=== PATIENT | female | born 1965 | race Caucasian/White ===

== ENCOUNTER → 2016-04-29 | Outpatient (CLI) | payer BC ==
[2016-04-29 11:34] LABS: ALT 52 U/L (9-52); AST 30 U/L (14-36); Alkaline Phosphatase 68 U/L (38-126); Anion Gap 13 mmol/L; Blood Urea Nitrogen 15 mg/dL (7-17); Carbon Dioxide 26 mmol/L (22-30); Chloride 106 mmol/L (98-107); Glucose 100 mg/dL (74-99); Non-African American GFR(MDRD) >60 (>60 ml/min/1.73 sqM); Potassium 4.4 mmol/L (3.5-5.1); Sodium 145 mmol/L (137-145); Total Bilirubin 0.6 mg/dL (0.2-1.3)
[2016-04-29 12:21] LABS: Vitamin B12 390 pg/mL (239-931)
== END | disposition home or self-care (01) ==
LOC: LABWHC1 10:35
PROVIDERS: ATTEND Internal Medicine Endocrinology, Diabetes & Metabolism
DX: E03.8 Other specified hypothyroidism (principal); E11.65 Type 2 diabetes mellitus with hyperglycemia; E55.9 Vitamin D deficiency, unspecified
CPT/HCPCS: 36415; 80053; 82043; 82306; 82607; 83036; 84439; 84443; 86376; 86800

== ENCOUNTER → 2016-09-16 | Outpatient (CLI) | payer BC ==
--- NOTE | 2016-09-16 13:23 | US ---
EXAMINATION TYPE: US abdomen complete DATE OF EXAM: 09/16/2016 7:26 AM COMPARISON: NONE CLINICAL HISTORY: R10.11 RUQ Abdominal Pain. 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 Upper IVC: Only partially visualized Abd Aorta: Only partially visualized Liver echotexture is coarse. Cortical medullary differentiation is maintained within the kidneys. The re is no ascites. IMPRESSION: Correlate for fatty infiltration of the liver versus hepatocellular disease. 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 Limited exam.
== END | disposition home or self-care (01) ==
LOC: RADUSWWP 07:03
PROVIDERS: ATTEND Family Medicine
DX: R10.11 Right upper quadrant pain (principal)
CPT/HCPCS: 76700

== ENCOUNTER → 2016-10-21 | Outpatient (CLI) | payer BC ==
--- NOTE | 2016-10-21 09:31 | NM ---
EXAMINATION TYPE: NM hepatobiliary w EF DATE OF EXAM: 10/21/2016 COMPARISON: NONE HISTORY: Right upper quadrant pain TECHNIQUE: After the intravenous administration of 5.28 mCi Tc 99m Mebrofenin hepatobiliary scintigra phy is performed. Immediate images post injection. FINDINGS: There is satisfactory initial accumulation of tracer by the liver. The gallbladder is visualized wit hin 10 minutes. The small bowel activity is noted within 34 minutes. At one hour 8 ounces of oral e nsure plus is given to mimic CCK and gallbladder ejection fraction is calculated at 90 %, above joan l. Therefore there is no scintigraphic evidence of cystic or common bile duct obstruction to suggest acute cholecystitis or gallbladder dyskinesia. IMPRESSION: HYPERCONTRACTILITY OF THE GALLBLADDER.
== END | disposition home or self-care (01) ==
LOC: RADNMMAIN 07:00
PROVIDERS: ATTEND Surgery
DX: K82.8 Other specified diseases of gallbladder (principal); R10.11 Right upper quadrant pain
CPT/HCPCS: 78226; A9537

== ENCOUNTER → 2017-02-06 | Outpatient (CLI) | payer MEDICARE ==
--- NOTE | 2017-02-09 10:41 | MM ---
Reason for exam: screening (asymptomatic). Last mammogram was performed 1 year and 8 months ago. History: Patient is postmenopausal. Physical Findings: A clinical breast exam by your physician is recommended on an annual basis and results should be correlated with mammographic findings. MG 3D Screening Mammo W/Cad Bilateral CC and MLO view(s) were taken. Prior study comparison: June 14, 2015, bilateral MG 3d screening mammo w/cad. February 17, 2012, mammogram. March 03, 2006, bilateral screening mammogram w/CAD. There are scattered fibroglandular densities. There is a 5mm mass in the central lower left breast 5cm from nipple. ASSESSMENT: Incomplete: need additional imaging evaluation, BI-RAD 0 RECOMMENDATION: Special view mammogram of the left breast. If lesion persists on supplemental views, image directed ultrasound is recommended. [facility] will attempt to contact patient to return for supplemental views and ultrasound if indicated.
== END | disposition home or self-care (01) ==
LOC: RADMAMWWP 07:41
PROVIDERS: ATTEND Surgery
DX: Z12.31 Encounter for screening mammogram for malignant neoplasm of breast (principal)
CPT/HCPCS: 77063; G0202

== ENCOUNTER → 2017-02-10 | Outpatient (CLI) | payer MEDICARE ==
--- NOTE | 2017-02-10 08:30 | MM ---
Reason for exam: additional evaluation requested from abnormal screening. Last mammogram was performed less than 1 month ago. History: Patient is postmenopausal. Took estrogen for 10 years beginning at age 30. Took progesterone for 10 years beginning at age 30. Physical Findings: Nurse did not find any significant physical abnormalities on exam. MG 3D Work Up W/Cad LT Spot compression CC, spot compression MLO, and LM view(s) were taken of the left breast. Prior study comparison: February 06, 2017, bilateral MG 3d screening mammo w/cad. June 14, 2015, bilateral MG 3d screening mammo w/cad. There are scattered fibroglandular densities. There is a 3-4mm mass that persists on addiitonal views. These results were verbally communicated with the patient and result sheet given to the patient on 02/10/17. ASSESSMENT: Incomplete: need additional imaging evaluation, BI-RAD 0 RECOMMENDATION: Ultrasound of the left breast. (lower inner quadrant, 3-4mm mass 4cm from the nipple)
--- NOTE | 2017-02-10 08:32 | USB ---
Reason for exam: additional evaluation requested from abnormal screening. History: Patient is postmenopausal. Took estrogen for 10 years beginning at age 30. Took progesterone for 10 years beginning at age 30. US Breast Workup Limited LT Technologist: Janel Gotti Left breast ultrasound demonstrates a 0.4 x 0.2 x 0.4cm oval lesion too small to characterize at 6 o'clock, probable cyst with subtle increased through transmission. Correlates with mammographic finding possibly subtly present on exam from 2011. These results were verbally communicated with the patient and result sheet given to the patient on 02/10/17. ASSESSMENT: Probably benign, BI-RAD 3 RECOMMENDATION: Ultrasound of the left breast in 6 months.
== END ==
LOC: RADMAMWWP 06:58
PROVIDERS: ATTEND Surgery
DX: R92.8 Other abnormal and inconclusive findings on diagnostic imaging of breast (principal)
CPT/HCPCS: 76642; G0206; G0279

== ENCOUNTER → 2017-09-03 | Outpatient (CLI) | payer MEDICARE ==
--- NOTE | 2017-09-03 11:02 | USB ---
Reason for exam: follow-up at short interval from prior study. History: Patient is postmenopausal. Took estrogen for 10 years beginning at age 30. Took progesterone for 10 years beginning at age 30. Physical Findings: Nurse Summary: all soft, nodular, movable, bilateral tenderness (nurse ts). US Breast LT Left complete breast ultrasound includes all four quadrants, the retroareolar region and axilla. Finding demonstrates a 0.3 x 0.2 x 0.3cm lesion too small to characterize at 6 o'clock, stable. These results were verbally communicated with the patient and result sheet given to the patient on 09/03/17. ASSESSMENT: Benign, BI-RAD 2 RECOMMENDATION: Return to routine screening mammogram schedule for both breasts. Back on schedule.
== END | disposition home or self-care (01) ==
LOC: RADUSWWP 08:46
PROVIDERS: ATTEND Family Medicine
DX: N63.20 Unspecified lump in the left breast, unspecified quadrant (principal)

== ENCOUNTER → 2017-11-19 | Outpatient (CLI) | payer MEDICARE ==
--- NOTE | 2017-11-19 12:40 | XR ---
EXAMINATION TYPE: XR knee complete bilateral DATE OF EXAM: 11/19/2017 CLINICAL HISTORY: Bilateral knee pain for one week. TECHNIQUE: Three views of the bilateral knees were obtained. COMPARISON: None. FINDINGS: There is no acute fracture/dislocation evident in either knee. There are small marginal os teophytes of the tricompartmental spaces bilaterally. On the right there is mild medial compartment j oint space narrowing. Bilaterally there is mild tibial plateau sclerosis of both the medial and later al compartments. Very small fabellae are incidentally noted bilaterally. No suprapatellar joint effus ion of either knee. No suspicious osseous lesion is seen. IMPRESSION: There is no acute fracture or dislocation in either knee. Moderate tricompartmental arth ropathy bilaterally, right slightly greater than left.
== END | disposition home or self-care (01) ==
LOC: RADXRMAIN 11:49
PROVIDERS: ATTEND Family Medicine
DX: M17.0 Bilateral primary osteoarthritis of knee (principal)

== ENCOUNTER → 2018-11-09 | Outpatient (CLI) | payer MEDICARE ==
--- NOTE | 2018-11-09 13:23 | MM ---
Reason for exam: additional evaluation requested from prior study. Last mammogram was performed 1 year and 9 months ago. History: Patient is postmenopausal. Took estrogen for 10 years beginning at age 30. Took progesterone for 10 years beginning at age 30. Physical Findings: Nurse did not find any significant physical abnormalities on exam. MG 3D Diag Mammo W/Cad [facility] Bilateral CC and MLO view(s) were taken. Prior study comparison: February 10, 2017, left breast MG 3d work up w/cad LT. February 06, 2017, bilateral MG 3d screening mammo w/cad. The breast tissue is almost entirely fat. No significant new findings when compared with previous films. These results were verbally communicated with the patient and result sheet given to the patient on 11/09/18. ASSESSMENT: Benign, BI-RAD 2 RECOMMENDATION: Routine screening mammogram of both breasts in 1 year.
== END | disposition home or self-care (01) ==
LOC: RADMAMWWP 12:41
PROVIDERS: ATTEND Family Medicine
DX: R92.8 Other abnormal and inconclusive findings on diagnostic imaging of breast (principal)
CPT/HCPCS: 77066; G0279; 77062

== ENCOUNTER → 2019-07-11 | Outpatient (CLI) | payer MEDICARE | END | disposition home or self-care (01) | DX: R07.89 Other chest pain (principal) | CPT/HCPCS: 71046 ==

== ENCOUNTER → 2019-10-06 | Outpatient (CLI) | payer MEDICARE ==
--- NOTE | 2019-10-06 13:39 | XR ---
EXAMINATION TYPE: XR ribs RT DATE OF EXAM: 10/06/2019 COMPARISON: NONE HISTORY: 54-year-old female with right rib pain TECHNIQUE: 4 views FINDINGS: No displaced right rib fracture seen. Some costochondral calcifications noted along the lower ribs. V isualized right hemithorax is clear. IMPRESSION: No displaced right rib fracture seen.
== END | disposition home or self-care (01) ==
LOC: RADXRMAIN 13:10
PROVIDERS: ATTEND Family Medicine
DX: R07.81 Pleurodynia (principal)

== ENCOUNTER → 2019-11-15 | Outpatient (CLI) | payer MEDICARE ==
--- NOTE | 2019-11-16 08:46 | MM ---
Reason for exam: screening (asymptomatic). Last mammogram was performed 1 year ago. History: Patient is postmenopausal. Took estrogen for 10 years beginning at age 30. Took progesterone for 10 years beginning at age 30. Physical Findings: A clinical breast exam by your physician is recommended on an annual basis and results should be correlated with mammographic findings. MG 3D Screening Mammo W/Cad Bilateral CC and MLO view(s) were taken. Prior study comparison: November 09, 2018, bilateral MG 3d diag mammo w/cad [facility]. February 10, 2017, left breast MG 3d work up w/cad LT. There are scattered fibroglandular densities. Finding: There are typically benign round calcifications in the upper quadrant, middle position of the left breast. There is no discrete abnormality. ASSESSMENT: Benign, BI-RAD 2 RECOMMENDATION: Routine screening mammogram of both breasts in 1 year.
== END | disposition home or self-care (01) ==
LOC: RADMAMWWP 07:49
PROVIDERS: ATTEND Family Medicine
DX: Z12.31 Encounter for screening mammogram for malignant neoplasm of breast (principal)
CPT/HCPCS: 77063; 77067

== ENCOUNTER → 2020-11-01 | Outpatient (CLI) | payer MEDICARE ==
[2020-11-01 14:36] VITALS: BP 116/75; PULSE 106; RESP 18; TEMP 98; BMI 47.2
[2020-11-01 16:08] LABS: HCT 36.2 % (34.0-46.0); HGB 12.3 gm/dL (11.4-16.0); MCHC 33.9 g/dL (31.0-37.0); MCV 76.6 fL (80.0-100.0); Mean Platelet Volume 7.3; Microcytosis Slight; Platelet Count 272 k/uL (150-450); RBC 4.72 m/uL (3.80-5.40); RDW 14.6 % (11.5-15.5); WBC 7.9 k/uL (3.8-10.6)
--- NOTE | 2020-11-01 16:49 | P.HPBAR ---
Bariatric H&P - History & Physicial H&P Date: 11/01/20 History & Physicial: Visit/CC: initial visit Patient initial contact: Initial weight: Initial weight in pounds: Height: 5 ft 0.5 in Initial BMI: Last weight: Current weight: 111.584 kg Current weight in pounds: 246.00 Current BMI: 47.2 [place] body weight (based on NIH guidelines): 46.493 kg Excess body weight loss: The patient is a 55 year-old F who presents for Bariatric Assessment. Patient results the bariatric center to discuss weight loss surgery. Patient states she has been considering weight loss surgery for many years. Patient suffers from asthma, diabetes, chronic knee pain. Patient with history of mild reflux in the past. Abdominal surgeries include tubal ligation and hysterectomy. No history of DVT or dysphagia. No tobacco use. Review of Systems The patient denies any acute changes in vision or hearing, no dysphagia or odynophagia, no chest pain or shortness of breath, no dysuria or hematuria, no headache, no runny nose, no rectal bleeding or melena, no unexplained weight loss Past Medical History Past Medical History: Asthma, Diabetes Mellitus, GERD/Reflux, Sleep Apnea/CPAP/BIPAP, Thyroid Disorder Additional Past Medical History / Comment(s): DM Type II. History of Any Multi-Drug Resistant Organisms: None Reported Past Surgical History: Adenoidectomy, Hysterectomy, Tonsillectomy, Tubal Ligation Past Anesthesia/Blood Transfusion Reactions: No Reported Reaction Smoking Status: Never smoker Surgical - Exam Vital Signs Temp Pulse Resp BP 98 F 106 H 18 116/75 11/01/20 14:34 11/01/20 14:34 11/01/20 14:34 11/01/20 14:34 Physical exam: General: Well-developed, well-nourished HEENT: Normocephalic, sclerae nonicteric Abdomen: Nontender, nondistended Extremities: No edema Neuro: Alert and oriented Results - Labs 11/01/20 15:10 Abnormal Lab Results - Last 24 Hours (Table) 11/01/20 Range/Units 15:10 MCV 76.6 L (80.0-100.0) fL Bariatric Assessment & Plan (1) Morbid obesity with BMI of 45.0-49.9, adult Narrative/Plan: 55-year-old female with morbid obesity. Patient remains interested in surgical weight loss. Risks and benefits of both sleeve gastrectomy and gastric bypass discussed in detail. Patient does have history of previous EGD 2-3 years ago that she says was normal. Recommend repeating that study at some point prior to surgery. Will obtain medical clearance. Status: Acute Bariatric Checklist Checklist: Plan: Checklist: EGD: 1. Hiatal hernia: 2. H. Pylori: HgbA1c: Vitamin D: Smoking: Never smoker Primary care physician referral: Dr. Lopez Psychiatry clearance: Cardiology clearance: Sleep study: Diet journal: VTE risk score: VTE risk level: Rehab needs at discharge:
[2020-11-01 23:52] LABS: Hemoglobin A1C 6.4 % (4.0-6.0)
[2020-11-02 03:42] LABS: African American GFR (CKD) 83.4 (60.0-200.0); Albumin 4.7 g/dL (3.80-4.90); Albumin/Globulin Ratio 2.04 (1.60-3.17); Anion Gap 10.5 mmol/L (4.00-12.00); Calcium 9.5 mg/dL (8.7-10.3); Carbon Dioxide 23.5 mmol/L (21.6-31.8); Globulin 2.3 g/dL (1.6-3.3); Potassium 4.6 mmol/L (3.5-5.5); Total Bilirubin 0.5 mg/dL (0.2-1.2)
== END ==
LOC: BARWHC3 14:18
PROVIDERS: ATTEND Surgery
DX: E66.01 Morbid (severe) obesity due to excess calories (principal); J45.909 Unspecified asthma, uncomplicated; E11.9 Type 2 diabetes mellitus without complications; K21.9 Gastro-esophageal reflux disease without esophagitis; K90.89 Other intestinal malabsorption; E55.9 Vitamin D deficiency, unspecified; Z71.51 Drug abuse counseling and surveillance of drug abuser; Z68.42 Body mass index [BMI] 45.0-49.9, adult; Z79.899 Other long term (current) drug therapy; Z91.048 Other nonmedicinal substance allergy status; Z88.1 Allergy status to other antibiotic agents; Z88.0 Allergy status to penicillin; Z88.7 Allergy status to serum and vaccine
CPT/HCPCS: 84425; 80053; 82607; 82746; 83540; 85027; 82306; 83036; 93005; 36415; G0480; G0463; 80323; 99203

== ENCOUNTER 2020-12-04 07:38 | Day surgery (SDC) | payer MEDICARE ==
[2020-11-29 13:28] VITALS: BMI 46.3
[~2020-12-04 07:38] MED LIST: LIDOCAINE 1% (10MG/ML) FOR IV START INTRADERMA PRN
[2020-12-04 08:00] VITALS: RESP 18; TEMP 97.1
[2020-12-04] MEDS: LACTATED RINGERS 1,000 ML IV SCH ×2 (08:07→08:29)
[2020-12-04 08:09] LABS: Glucose,Whole Blood 129 mg/dL (75-99)
[2020-12-04] MEDS ORDERED: LIDOCAINE 1% INJ 10MG/ML (20 ML MDV) ONE (08:29)
[2020-12-04] MEDS ORDERED: MIDAZOLAM 2 MG/2 ML VIAL ONE (08:29)
[2020-12-04] MEDS ORDERED: PROPOFOL 10 MG/ML 20 ML VIAL IV ONE (08:29)
[2020-12-04] MEDS ORDERED: KETAMINE 10 MG/ML 20 ML VIAL ONE (08:29)
--- NOTE | 2020-12-04 08:31 | P.GSHP ---
History of Present Illness H&P Date: 12/04/20 Chief Complaint: GERD, presurgical Patient is here today for upper endoscopy. Patient with history of mild reflux. Being evaluated for sleep gastrectomy. No dysphagia. Past Medical History Past Medical History: Asthma, Diabetes Mellitus, GERD/Reflux, Sleep Apnea/CPAP/BIPAP, Thyroid Disorder Additional Past Medical History / Comment(s): DM Type II. Does not use C-PAP. History of Any Multi-Drug Resistant Organisms: None Reported Past Surgical History: Adenoidectomy, Hysterectomy, Tonsillectomy, Tubal Ligation Additional Past Surgical History / Comment(s): EGD Past Anesthesia/Blood Transfusion Reactions: No Reported Reaction Additional Past Anesthesia/Blood Transfusion Reaction / Comment(s): Sometimes slow to awake and has hypotension. Smoking Status: Never smoker - Past Family History Mother Family Medical History: No Reported History Medications and Allergies Home Medications Medication Instructions Recorded Confirmed Type LORazepam [Ativan] 0.5 mg PO TID PRN #8 tab 05/29/14 12/04/20 Rx Omeprazole [PriLOSEC] 20 mg PO [id number]-[id number] PRN 05/29/14 12/04/20 History Levothyroxine Sodium [Synthroid] 137 mcg PO DAILY 11/01/20 12/04/20 History Pioglitazone [Actos] 45 mg PO HS 11/01/20 12/04/20 History Venlafaxine HCl [Effexor XR] 150 mg PO DAILY 11/01/20 12/04/20 History metFORMIN HCL [Glucophage] 1,000 mg PO BID 11/01/20 12/04/20 History Ergocalciferol [Vitamin D2 (1250 50,000 unit PO Q7DAYS 11/07/20 12/04/20 History Mcg = [id number] Iu)] Albuterol Inhaler [Ventolin Hfa 1 puff INHALATION RT-TID PRN 11/29/20 12/04/20 History Inhaler] Allergies Allergy/AdvReac Type Severity Reaction Status Date / Time copper Allergy Rash/Hives Verified 12/04/20 07:56 erythromycin base Allergy Rash/Hives Verified 12/04/20 07:56 influenza A (H1N1) virus Allergy Rash/Hives Verified 12/04/20 07:56 vaccine m- [From influenza A (H1N1)] influenza virus vaccine, Allergy Rash/Hives Verified 12/04/20 07:56 specific [influenza virus vacc,specific] lead Allergy Rash/Hives Verified 12/04/20 07:56 Penicillins Allergy Rash/Hives Verified 12/04/20 07:56 silver Allergy Rash/Hives Verified 12/04/20 07:56 sulfamethoxazole Allergy Rash/Hives Verified 12/04/20 07:56 [From Bactrim] trimethoprim [From Bactrim] Allergy Rash/Hives Verified 12/04/20 07:56 zinc Allergy Rash/Hives Verified 12/04/20 07:56 Steroids Allergy Rash/Hives Uncoded 12/04/20 07:56 Surgical - Exam Vital Signs Temp Pulse Resp BP Pulse Ox 97.1 F L 88 18 132/64 98 12/04/20 07:59 12/04/20 07:59 12/04/20 07:59 12/04/20 07:59 12/04/20 07:59 Physical exam: General: Well-developed, well-nourished HEENT: Normocephalic, sclerae nonicteric Abdomen: Nontender, nondistended Extremities: No edema Neuro: Alert and oriented Results - Labs Abnormal Lab Results - Last 24 Hours (Table) 12/04/20 Range/Units 08:04 POC Glucose (mg/dL) 129 H (75-99) mg/dL Assessment and Plan (1) GERD (gastroesophageal reflux disease) Narrative/Plan: Will proceed with upper endoscopy Current Visit: Yes Status: Acute Code(s): K21.9 - GASTRO-ESOPHAGEAL REFLUX DISEASE WITHOUT ESOPHAGITIS SNOMED Code(s): 945347519
--- NOTE | 2020-12-04 08:40 | P.PCN ---
Date of Procedure: 12/04/20 Procedure(s) Performed: Preoperative Dx: GERD, presurgical Postoperative Dx: Gastritis, hiatal hernia, distal esophagitis Procedure: EGD with Bx Anesthesia: Sedation Endoscopist: Dr. Viveros Specimens: Antrum, distal esophagus Endoscopic Procedure: The patient was on the endoscopy table in the left decubitus position. The Olympus gastroscope was inserted into the oropharynx and passed under direct visualization to the region of the third portion of the duodenum. From that point the scope was slowly withdrawn inspecting all surfaces carefully. There were no neoplastic inflammatory or polypoid lesions throughout the duodenum. The pylorus was widely patent. The stomach was carefully inspected. There was mild gastritis present. A biopsy of the antrum took place to rule out H. pylori. Retroflexion revealed a small sliding hiatal hernia. At the GE junction there was a single linear erosion the measured 1.5 cm in length the remainder the esophagus appear normal. The patient was then taken to the recovery room in stable condition per anesthesia guidelines. Recommendations: Resume diet. Follow-up bariatric center 2-3 weeks.
[2020-12-04 09:09] VITALS: BP 114/78; PULSE 81
== END 2020-12-04 09:37 | disposition home or self-care (01) ==
LOC: ORWHC2ENDO 07:38
PROVIDERS: ATTEND Surgery
DX: K29.50 Unspecified chronic gastritis without bleeding (principal); K44.9 Diaphragmatic hernia without obstruction or gangrene; K20.0 Eosinophilic esophagitis; J45.909 Unspecified asthma, uncomplicated; E11.9 Type 2 diabetes mellitus without complications; K21.9 Gastro-esophageal reflux disease without esophagitis; G47.30 Sleep apnea, unspecified; E07.9 Disorder of thyroid, unspecified; Z90.89 Acquired absence of other organs; Z90.710 Acquired absence of both cervix and uterus; Z98.51 Tubal ligation status; Z98.890 Other specified postprocedural states; Z79.890 Hormone replacement therapy; Z79.899 Other long term (current) drug therapy; Z79.84 Long term (current) use of oral hypoglycemic drugs; Z88.1 Allergy status to other antibiotic agents; Z88.0 Allergy status to penicillin; Z88.2 Allergy status to sulfonamides; Z88.8 Allergy status to other drugs, medicaments and biological substances; Z91.048 Other nonmedicinal substance allergy status
CPT/HCPCS: 88305; 43239; J2250; J2001; J2704

== ENCOUNTER → 2021-01-01 | Outpatient (CLI) | payer MEDICARE ==
[2021-01-01 15:03] VITALS: BP 116/80; PULSE 101; RESP 16; TEMP 98.1; BMI 47.8
--- NOTE | 2021-01-01 17:04 | P.BASOAP ---
Subjective Progress Note Date: 01/01/21 Principal diagnosis: Morbid obesity Patient returns for recheck. Underwent recent EGD showing gastritis, hiatal hernia, mild distal esophagitis. Biopsies reviewed. Remains interested in sleeve gastrectomy. Objective - Vital Signs Vital signs: Vital Signs Temp 98.1 F 01/01/21 15:01 Pulse 101 H 01/01/21 15:01 Resp 16 01/01/21 15:01 BP 116/80 01/01/21 15:01 Pulse Ox Intake & Output 12/31/20 01/01/21 01/01/21 18:59 06:59 18:59 Weight 112.945 kg - Exam Abdomen: Soft, nontender, nondistended Assessment/Plan (1) Morbid obesity with BMI of 45.0-49.9, adult Narrative/Plan: Patient returns for evaluation. Remains interested in sleeve gastrectomy. Findings of hiatal hernia discussed with the patient. Plan to repair at time of sleeve gastrectomy. Increased risk of reflux and hernia recurrence reviewed. Surgical consent form reviewed in detail. We'll schedule. Plan: Date: 01/01/21 Initial Weight: 111.584 kg Initial BMI: 47.2 Current Weight: 112.945 kg Current BMI: 47.8 Type of Surgery: Total Volume in Band: Previous Volume: Volume Removed: Volume Added: Band Size:
== END ==
LOC: BARWHC3 13:53
PROVIDERS: ATTEND Surgery
DX: E66.01 Morbid (severe) obesity due to excess calories (principal); K44.9 Diaphragmatic hernia without obstruction or gangrene; K29.70 Gastritis, unspecified, without bleeding; K20.90 Esophagitis, unspecified without bleeding; Z68.42 Body mass index [BMI] 45.0-49.9, adult; Z88.9 Allergy status to unspecified drugs, medicaments and biological substances; Z88.1 Allergy status to other antibiotic agents; Z88.7 Allergy status to serum and vaccine; Z88.0 Allergy status to penicillin; Z88.2 Allergy status to sulfonamides; Z88.8 Allergy status to other drugs, medicaments and biological substances
CPT/HCPCS: 99211

== ENCOUNTER → 2021-01-14 | Outpatient (CLI) | payer MEDICARE ==
[2021-01-14 14:03] VITALS: BMI 48.6
== END ==
LOC: BARWHC3 09:10
PROVIDERS: ATTEND Surgery
DX: E66.01 Morbid (severe) obesity due to excess calories (principal); Z71.3 Dietary counseling and surveillance; Z88.1 Allergy status to other antibiotic agents; Z88.0 Allergy status to penicillin; Z88.7 Allergy status to serum and vaccine; Z88.8 Allergy status to other drugs, medicaments and biological substances; Z88.2 Allergy status to sulfonamides; Z88.9 Allergy status to unspecified drugs, medicaments and biological substances
CPT/HCPCS: 97804

== ENCOUNTER → 2021-01-22 | Outpatient (CLI) | payer MEDICARE ==
--- NOTE | 2021-01-23 09:37 | MM ---
Reason for exam: screening (asymptomatic). Last mammogram was performed 1 year and 2 months ago. History: Patient is postmenopausal. Took estrogen for 10 years beginning at age 30. Took progesterone for 10 years beginning at age 30. Physical Findings: A clinical breast exam by your physician is recommended on an annual basis and results should be correlated with mammographic findings. MG 3D Screening Mammo W/Cad Bilateral CC and MLO view(s) were taken. Prior study comparison: November 15, 2019, bilateral MG 3d screening mammo w/cad. November 09, 2018, bilateral MG 3d diag mammo w/cad [facility]. There are scattered fibroglandular densities. There is no discrete abnormality. No significant changes when compared with prior studies. ASSESSMENT: Negative, BI-RAD 1 RECOMMENDATION: Routine screening mammogram of both breasts in 1 year.
== END | disposition home or self-care (01) ==
LOC: RADMAMWWP 08:07
PROVIDERS: ATTEND Family Medicine
DX: Z12.31 Encounter for screening mammogram for malignant neoplasm of breast (principal); Z78.0 Asymptomatic menopausal state
CPT/HCPCS: 77063; 77067

== ENCOUNTER → 2021-06-18 | Outpatient (CLI) | payer MEDICARE ==
[2021-06-18 14:53] VITALS: BP 125/78; PULSE 90; TEMP 98; BMI 50.3
--- NOTE | 2021-06-18 15:11 | P.BASOAP ---
Subjective Progress Note Date: 06/18/21 Principal diagnosis: morbid obesity Patient returns for preoperative evaluation. Her was ill with Covid and was on the ventilator. Patient required tracheostomy and PEG tube placement. He was discharged from the hospital 1-2 months ago. Doing much better at this time. For that reason patient's surgery was placed on hold. Since her last visit no changes to her medical history. No new complaints. Objective - Vital Signs Vital signs: Vital Signs Temp 98 F 06/18/21 14:51 Pulse 90 06/18/21 14:51 Resp BP 125/78 06/18/21 14:51 Pulse Ox Intake & Output 06/17/21 06/18/21 06/18/21 18:59 06:59 18:59 Weight 118.841 kg - Exam Abdomen: Soft, nontender, nondistended Assessment/Plan (1) Morbid obesity with BMI of 45.0-49.9, adult Narrative/Plan: 56 yo female with morbid obesity and associated comorbidities. Patient remains interested in laparoscopic sleeve gastrectomy with concurrent repair hiatal hernia, possible open. The risks of bleeding, infection, stenosis, stricture, leak, abscess, hernia recurrence, fistula formation, peritonitis, poor weight loss, reflux, vomiting, conversion to an open procedure, aborting sleeve gastrectomy, MA, PE, DVT, and were discussed. The patient understands and wishes to proceed. Plan: Date: 06/18/21 Initial Weight: 111.584 kg Initial BMI: 47.2 Current Weight: 118.841 kg Current BMI: 50.3 Type of Surgery: Total Volume in Band: Previous Volume: Volume Removed: Volume Added: Band Size:
== END ==
LOC: BARWHC3 14:20
PROVIDERS: ATTEND Surgery
DX: E66.01 Morbid (severe) obesity due to excess calories (principal); K44.9 Diaphragmatic hernia without obstruction or gangrene; Z68.43 Body mass index [BMI] 50.0-59.9, adult; Z88.1 Allergy status to other antibiotic agents; Z88.7 Allergy status to serum and vaccine; Z88.0 Allergy status to penicillin; Z88.9 Allergy status to unspecified drugs, medicaments and biological substances; Z88.2 Allergy status to sulfonamides; Z88.8 Allergy status to other drugs, medicaments and biological substances
CPT/HCPCS: 99211

== ENCOUNTER → 2022-02-10 | Outpatient (CLI) | payer MEDICARE ==
--- NOTE | 2022-02-12 08:03 | MM ---
Reason for Exam: Screening (asymptomatic). Last mammogram was performed 1 year(s) and 1 month(s) ago. Patient History: Menarche at age 13. First Full-Term at age 25. Left ovary removed at age 30. Right ovary removed at age 30. Hysterectomy at age 30. Postmenopausal. Estrogen for 10 years from age 30 until age 40. Progesterone for 10 years from age 30 until age 40. Risk Values: Melissa 5 year model risk: 1.4%. NCI Lifetime model risk: 8.7%. Prior Study Comparison: 11/09/2018 Bilateral Diagnostic Mammogram, [facility]. 11/15/2019 Bilateral Screening Mammogram, [facility]. 01/22/2021 Bilateral Screening Mammogram, [facility]. Tissue Density: There are scattered fibroglandular densities. Findings: Analyzed By CAD. There is no suspicious group of microcalcifications or new suspicious mass in either breast. Benign round calcifications within the left breast. No significant change from prior examinations. Overall Assessment: Benign, BI-RAD 2 Management: Screening Mammogram of both breasts in 1 year. A clinical breast exam by your physician is recommended on an annual basis and results should be correlated with mammographic findings. Electronically signed and approved by: Bry Manrique D.O.
== END | disposition home or self-care (01) ==
LOC: RADMAMWWP 07:18
PROVIDERS: ATTEND Family Medicine
DX: Z12.31 Encounter for screening mammogram for malignant neoplasm of breast (principal)
CPT/HCPCS: 77063; 77067

== ENCOUNTER → 2023-06-23 | Outpatient (CLI) | payer MEDICARE ==
--- NOTE | 2023-06-24 13:10 | MM ---
Reason for Exam: Screening (asymptomatic). Last mammogram was performed 1 year(s) and 4 month(s) ago. Patient History: Menarche at age 13. First Full-Term at age 25. Left ovary removed at age 30. Right ovary removed at age 30. Hysterectomy at age 30. Postmenopausal. Estrogen for 10 years from age 30 until age 40. Progesterone for 10 years from age 30 until age 40. Risk Values: Melissa 5 year model risk: 1.5%. NCI Lifetime model risk: 8.5%. Prior Study Comparison: 11/15/2019 Bilateral Screening Mammogram, [facility]. 01/22/2021 Bilateral Screening Mammogram, [facility]. 02/10/2022 Bilateral MG 3D screening mammo w/cad, [facility]. Tissue Density: The breast tissue is almost entirely fat. Findings: Analyzed By CAD. There is no suspicious group of microcalcifications or new suspicious mass. Benign-appearing calcifications bilaterally. Overall Assessment: Benign, BI-RAD 2 Management: Screening Mammogram of both breasts in [address] [facility] will attempt to contact patient to return for supplemental views and ultrasound if indicated. Patient should continue monthly self-breast exams. A clinical breast exam by your physician is recommended on an annual basis. This exam should not preclude additional follow-up of suspicious palpable abnormalities. Note on Melissa scores and lifetime risk: 1. A Melissa score greater than 3% is considered moderate risk. If this is the case, consider specialist referral to assess eligibility for a risk reducing agent. 2. If overall lifetime risk for the development of breast cancer is 20% or higher, the patient may qualify for future screening with alternating mammogram and breast MRI. Electronically signed and approved by: Derik Rich DO
== END | disposition home or self-care (01) ==
LOC: RADMAMWWP 09:33
PROVIDERS: ATTEND Family Medicine
DX: Z12.31 Encounter for screening mammogram for malignant neoplasm of breast (principal); Z78.0 Asymptomatic menopausal state
CPT/HCPCS: 77063; 77067

== ENCOUNTER → 2023-12-08 | Outpatient (CLI) | payer MEDICARE | LOC: LABPRL 08:40 | PROVIDERS: ATTEND Family Medicine | CPT/HCPCS: 83036; 84439; 84443 ==

== ENCOUNTER → 2024-05-24 | Outpatient (CLI) | payer MEDICARE ==
--- NOTE | 2024-05-24 09:27 | CT ---
INDICATION: Patient age:Female; 59 years old; Reason for study: [facility] Protocol for right knee replacement, M17.11 OA R knee; [facility]. COMPARISON: Bilateral knee radiographs 11/19/2017 TECHNIQUE: Thin section axial CT imaging of the entire right lower extremity was performed per [facility] protocol, wi thout the administration of IV contrast. Additional axial images of the bilateral hips and ankles wit h other knee were also obtained. Reformatted images in coronal and sagittal views obtained. FINDINGS: There is no evidence of acute fracture or dislocation. The hips are grossly unremarkable. Tricompartmental joint space narrowing with marginal osteophytosis of the right knee. Incidental flab feng. No significant joint effusion. Minimal prepatellar soft tissue stranding. Additional osteoarthritic changes of the left knee was small enchondroma within the proximal tibial m etaphysis. Similar degree of osteoarthritic changes within both knees. Most pronounced involving bilateral media l tibial femoral joint spaces. The ankles grossly unremarkable. The visualized soft tissues appear grossly unremarkable within the limits of unenhanced CT. Scattered sigmoid colonic diverticulosis. Posthysterectomy changes. Pelvic phleboliths. IMPRESSION: [facility] protocol for right knee joint replacement. [facility], , 05/24/2024 9:24 AM
== END | disposition home or self-care (01) ==
LOC: RADCTMAIN 07:48
PROVIDERS: ATTEND Orthopaedic Surgery
DX: M17.11 Unilateral primary osteoarthritis, right knee (principal); M17.12 Unilateral primary osteoarthritis, left knee; Z96.651 Presence of right artificial knee joint

== ENCOUNTER → 2024-06-23 | Outpatient (CLI) | payer MEDICARE ==
[2024-06-23 08:58] LABS: Partial Thromboplastin Time 22.1 sec (22.0-30.0)
[2024-06-23 15:23] LABS: Basophils # (A) 0.03 X 10*3/uL (0.00-0.10); Basophils % (A) 0.5 %; Eosinophils # (A) 0.22 X 10*3/uL (0.04-0.35); Eosinophils % (A) 3.8 %; HCT 38.8 % (37.2-46.3); HGB 11.6 g/dL (12.0-15.0); Lymphocytes # (A) 1.74 X 10*3/uL (0.90-5.00); Lymphocytes % (A) 29.7 %; MCH 24.2 pg (27.0-32.0); MCHC 29.9 g/dL (32.0-37.0); Mean Platelet Volume 10.6 FL (9.5-12.2); Monocytes # (A) 0.42 X 10*3/uL (0.20-1.00); Monocytes % (A) 7.2 %; NRBC Per 100 WBC 0 X 10*3/uL (0.00-0.01); Neutrophils # (A) 3.42 X 10*3/uL (1.80-7.70); Neutrophils % (A) 58.3 %; Platelet Count 301 X 10*3/uL (140-440); RBC 4.79 X 10*6/uL (4.10-5.20); RDW 14.8 % (11.5-14.5); WBC 5.86 X 10*3/uL (4.50-10.00)
[2024-06-23 15:37] LABS: ALT 18 U/L (8-44); AST 17 U/L (13-35); Albumin 4.4 g/dL (3.8-4.9); Albumin/Globulin Ratio 1.63 Ratio (1.60-3.17); Alkaline Phosphatase 77 U/L (41-126); BUN/Creat Ratio 16.25 Ratio (12.00-20.00); Calcium 9.7 mg/dL (8.7-10.3); Carbon Dioxide 24.4 mmol/L (21.6-31.8); Chloride 104 mmol/L (96-109); Chol/HDL Ratio 4.46 Ratio; Globulin 2.7 g/dL (1.6-3.3); Glucose 117 mg/dL (70-110); LDL Cholesterol,Calculated 129.5 mg/dL (0.0-131.0); Potassium 4.5 mmol/L (3.5-5.5); Sodium 141 mmol/L (135-145); T4, Free (Free Thyroxine) 1.46 ng/dL (0.80-1.80); Total Bilirubin 0.4 mg/dL (0.3-1.2); Total Protein 7.1 g/dL (6.2-8.2)
[2024-06-23 21:40] LABS: INR 0.9 (<1.2); Prothrombin Time 10.3 sec (10.0-12.5)
== END | disposition home or self-care (01) ==
LOC: LABWHC1 07:52
PROVIDERS: ATTEND Orthopaedic Surgery
DX: Z01.812 Encounter for preprocedural laboratory examination (principal); E11.9 Type 2 diabetes mellitus without complications; Z22.322 Carrier or suspected carrier of Methicillin resistant Staphylococcus aureus; M17.11 Unilateral primary osteoarthritis, right knee
CPT/HCPCS: 80053; 80061; 82043; 82570; 83036; 84439; 84443; 85025; 85610; 85730; 87070

== ENCOUNTER 2024-07-06 12:57 | Observation (INO) | payer MEDICARE ==
[~2024-07-06 12:57] MED LIST changes: +DEXAMETHASONE SOD PHOSPHATE 10 MG/ML 1 ML VIAL IV PRN; +HYDROmorphone 0.5 MG/0.5 ML SYRINGE IVP PRN; -LIDOCAINE 1% (10MG/ML) FOR IV START INTRADERMA PRN; +ONDANSETRON 4 MG/2 ML VIAL IVP PRN; +TRANEXAMIC 1,000 MG/100ML-NACL 1,000 MG in SALINE 1 100ML.BAG IV PRN; +TRANEXAMIC 1,000 MG/100ML-NACL 1,000 MG in SALINE 1 100ML.BAG IVPB PRN
[2024-07-06] MEDS: IV FLUID CONTINUATION 1,000 ML IV ONE ×2 (13:36→16:17)
[2024-07-06 13:42] LABS: Glucose,Whole Blood 114 mg/dL (70-110)
[2024-07-06] MEDS: LACTATED RINGERS 1,000 ML IV SCH (13:42)
[2024-07-06] MEDS: DOCUSATE 100 MG CAP PO PRN (13:52)
[2024-07-06] MEDS: oxyCODONE ER 10 MG TAB.ER.12H PO PRN (13:52)
[2024-07-06] MEDS: ACETAMINOPHEN TAB 500 MG TAB PO PRN (13:52)
[2024-07-06] MEDS: ONDANSETRON 4 MG/2 ML VIAL IVP ONE (13:54)
[2024-07-06] MEDS: KETOROLAC 15 MG/ML 1 ML VIAL IVP PRN (13:54)
[2024-07-06] MEDS: FAMOTIDINE 20 MG/2 ML VIAL IVP PRN (13:54)
[2024-07-06] MEDS: fentaNYL (PF) 50 MCG/ML 2 ML AMP IVP STA (14:01)
[2024-07-06] MEDS: MIDAZOLAM 2 MG/2 ML VIAL IV ONE (14:09)
[2024-07-06] MEDS ORDERED: HYDROmorphone (PF) 1 MG/ML ONE (14:15)
[2024-07-06] MEDS ORDERED: NEOSTIGMINE 1 MG/ML 10 ML VIAL ONE (14:15)
[2024-07-06] MEDS ORDERED: ROPIVACAINE 5 MG/ML 30 ML VIAL ONE (14:15)
[2024-07-06] MEDS ORDERED: fentaNYL (PF) 50 MCG/ML 2 ML AMP ONE (14:15)
[2024-07-06] MEDS ORDERED: ALBUTEROL HFA INHALER INHALATION ONE (14:15)
[2024-07-06] MEDS ORDERED: MIDAZOLAM 2 MG/2 ML VIAL ONE (14:15)
[2024-07-06] MEDS ORDERED: PHENYLEPHRINE-0.9% NACL SYG 1,000 MCG/10 ML SYRINGE ONE (14:15)
[2024-07-06] MEDS ORDERED: SUCCINYLCHOLINE CHLORIDE 200 MG/10 ML VIAL IV ONE (14:15)
[2024-07-06] MEDS ORDERED: PROPOFOL 10 MG/ML 20 ML VIAL IV ONE (14:15)
[2024-07-06] MEDS ORDERED: SODIUM CHLORIDE 0.9% (PF) 10 ML VIAL ONE (14:15)
[2024-07-06] MEDS ORDERED: TRANEXAMIC 1,000 MG/100ML-NACL PREMIX BAG ONE (14:15)
[2024-07-06] MEDS ORDERED: ROCURONIUM 10 MG/ML (5 ML VIAL) IV ONE (14:15)
[2024-07-06] MEDS ORDERED: LIDOCAINE 1% INJ 10MG/ML (20 ML MDV) ONE (14:15)
[2024-07-06] MEDS ORDERED: GLYCOPYRROLATE 0.2 MG/ML 2 ML VIAL ONE (14:15)
[2024-07-06] MEDS: ROPIVACAINE/EPI/CLONIDINE/KET 50 ML SYRINGE MISCELLANE PRN (15:01)
--- NOTE | 2024-07-06 16:10 | P.OP ---
Date of Procedure: 07/06/24 Preoperative Diagnosis: 1. Severe right knee osteoarthritis 2. BMI 49 Postoperative Diagnosis: Same Procedure(s) Performed: 1. Right total knee arthroplasty 2. Computer assisted musculoskeletal navigation using CT/MRI images 2. Application of negative pressure incisional wound VAC, right knee (DME device), less than 50 cm, incision measuring 15 cm Implants: 1. [place] [employer] CR Femur Size #3 2. [place] [employer] [place] Tibial Base Size #3 3. [place] [employer] CS poly Size #3, 10 4. [place] [employer] all poly patella, Size #29 Anesthesia: GETA, regional Surgeon: Melo Campbell Yard Pipe Grader #1: Justo Graves Estimated Blood Loss (ml): 200 IV fluids (ml): 800 Pathology: none sent Condition: stable Disposition: PACU Indications for Procedure: I met with the patient preoperatively in the office setting and discussed treatment of their symptomatic knee arthritis. They failed a long course of nonsurgical treatment and elected to proceed with an elective total knee replacement. I discussed the potential risks and complications at length and gave them ample time to ask questions. Risks discussed included: risks from anesthesia, superficial site surgical infection, acute and/or chronic periprosthetic joint infection, delayed wound healing, drainage, wound necrosis, instability, stiffness, stiffness requiring manipulation and/or revision surgery, damage to local blood vessels or nerves, aseptic loosening of the implants, extensor mechanism issues including disruption, patellar maltracking, avascular necrosis etc., continued or worsened knee pain, generalized dissatisfaction with surgical outcome, need for revision surgery, an inability to regain preinjury level of function, DVT, PE, other medical complications, and possibly loss of life or limb. The patient voiced their understanding that while these are the most common complications other less common complications are possible. They provided both their verbal and written consent to go forward with surgery. We also had a long discussion on the patient's weight. The patient's BMI was 49 in the office. She had had a long course of attempts at weight loss and nonsurgical treatment of her knee. Her knee pain had become incapacitating and she requested proceeding with a total knee replacement. She understands her elevated risk of having a complication given her weight. We discussed measures that we would take to help lower her risk including an incisional wound VAC and antibiotics. The patient provided her consent and acknowledged her elevated risk. Operative Findings: Severe tricompartmental arthritis with complete loss of the joint space in the medial and patellofemoral compartments and partial thickness cartilage loss in the lateral compartment. Description of Procedure: The patient was identified in preoperative holding and the correct operative extremity was verified and marked with a marker. I reviewed the consent form with the patient at length. All of their questions were answered. The patient was given a block by anesthesia. They were then brought back to the operating room. They were transferred onto the operating room table where a general anesthetic, preoperative antibiotics, and tranexamic acid were administered by anesthesia. A tourniquet was applied to the proximal aspect of the operative extremity. The contralateral extremity was padded under the heel and secured to the operating room table with a nonsterile blue towel and tape. The ipsilateral arm was carefully draped across the patient's chest and secured with a pillow and foam. A post was applied over the lateral aspect of the ipsilateral thigh and a bolster was placed under the ipsilateral foot. I verified that the operative extremity was stable and the knee was flexed to 90. The operative extremity was then placed in a leg zaman, nonsterile drapes were applied, and the extremity was prepped and draped sterilely in the standard sterile fashion. Prior to starting surgery timeout was performed identifying the correct patient, operative extremity, and procedure. The leg was then elevated, exsanguinated with an Esmarch bandage, and the tourniquet was inflated. An anterior midline incision was made sharply with a scalpel. Once I had dissected deep to the superficial fascial layer medial and lateral flaps were elevated. A medial parapatellar arthrotomy was created. Upon opening the knee joint there were diffuse arthritic changes in all 3 compartments. The anterior horn of the medial meniscus were sharply released and a medial release was performed around the posterior medial corner of the knee to facilitate retractor placement. The fat pad was excised with electrocautery. The patella was found to be severely arthritic and a provisional cut was made with a sagittal saw to facilitate mobilization of the extensor mechanism during the procedure. Remnants of the ACL and PCL were then excised from the notch. 4 mm pins were then placed within the incision in the medial distal femur and proximal tibia. Arrays were applied to the pins and I verified they were completely tightened. The knee was then registered with the Coherent [employer] robot and manipulations in implant position were made to balance the knee and opitmize implant position. Using the Juniro robotic saw all cuts were made in accordance with our plan. After all bony fragments had been removed the cuts were verified with the planar probe. The tibia was then subluxed forward and sized. The knee was brought into flexion and a lamina dressmaking teacher was placed to allow removal of the meniscal remnants both medially and laterally as well as posterior osteophytes. Local anesthetic was then infiltrated around the joint capsule. Trial implants were then placed wi thin the knee. Range of motion and collateral ligament tension was then evaluated. Adjustments in implant size and position were then made accordingly. Once the knee was felt to be appropriately balanced the Junior pins were removed. The patella was then recut, sized, and punched. A trial patellar button was then placed. With the trial components in place, the patella tracked midline. The femur was then drilled and the trial component removed. The trial tibial component was then appropriately rotated, pinned, and prepared for the keel. All trial components were then removed from the knee. The knee was thoroughly irrigated with pulsatile lavage. Cement was prepared via vacuum mixing in a bowl on the back table. I then hand pressurized cement into the femur and tibia and placed the implants beginning with the tibial base tray and poly liner, femoral component, and finally the patellar button. All extruded cement was removed including from the pin sites. Once the cement had hardened the knee was evaluated one final time with the final polyethylene liner in place. The knee had full extension and flexion and felt stable to varus and valgus stress throughout the arc of motion. The tourniquet was released and with the tourniquet down the patella tracked midline. All bleeders were controlled with electrocautery. The knee was then soaked for 3 minutes with a dilute Betadine soak. The knee was thoroughly irrigated using 3 L of sterile saline and pulsatile lavage. A deep drain was placed. The extensor mechanism was then reapproximated using pop off Vicryl sutures followed by a running barbed suture. The knee was then closed in layers with a 0 strata fix for the deep fascial layer, 2-0 strata fix for the superficial subcutaneous layer and Monocryl and Steri-Strips for the skin. Due to the patient's body habitus and incisional wound VAC was applied over the closed incision. I verified that all instrument, sponge, and sharp counts were correct. The patient was then transferred off the operating room table, extubated, and brought to recovery having tolerated the procedure well. Justo Graves PA-C was required as a skilled multimedia assistant due to the complexity of surgery for patient positioning, draping, exposure, retraction, closure of wound and application of dressing. PLAN: The patient can weight-bear as tolerated on the operative extremity. DVT prophylaxis with aspirin 81 mg twice a day based on preoperative risk stratification. Follow-up in the office in 2 weeks for wound check and x-rays of the knee including an AP and lateral.
[2024-07-06] MEDS ORDERED: TEMAZEPAM 15 MG CAP PO PRN (16:11)
[2024-07-06] MEDS ORDERED: HYDROcodone/APAP 5-325MG 1 EACH TAB PO PRN (16:11)
[2024-07-06] MEDS ORDERED: HYDROmorphone 0.5 MG/0.5 ML SYRINGE IVP PRN (16:11)
[2024-07-06] MEDS ORDERED: MAGNESIUM HYDROXIDE 2,400 MG/30 ML CUP PO PRN (16:11)
[2024-07-06] MEDS ORDERED: HYDROcodone/APAP 10-325MG 1 EACH TAB PO PRN (16:11)
[2024-07-06] MEDS ORDERED: ONDANSETRON 4 MG/2 ML VIAL IVP PRN (16:11)
[2024-07-06] MEDS ORDERED: NA PHOS,M-B/NA PHOS,DI-BA 133 ML ENEMA RECTAL PRN (16:11)
[2024-07-06] MEDS ORDERED: bisacodyL 10 MG SUPP RECTAL PRN (16:11)
[2024-07-06] MEDS ORDERED: NALOXONE 0.4 MG/ML 1 ML VIAL IV PRN (16:11)
--- NOTE | 2024-07-06 16:46 | P.ANPRN ---
Procedure Note - Anesthesia - Nerve Block Performed Right Adductor Canal Single Time Out Performed: Yes (1401) Date of Procedure: 07/06/24 Procedure Start Time: 14:02 Procedure Stop Time: 14:06 Location of Patient: PreOp Indication: Acute Post-Operative Pain, Requested by Surgeon Specifically requested for management of pain by DrMarielena: Melo Campbell Sedation Type: Sedate with meaningful contact maintained Preparation: Sterile Prep Position: Supine Catheter: None Needle Types: Pajunk Needle Gauge: 21 Ultrasound used to visualize needle placement: Yes Ultrasound used to observe medication spread: Yes Injectate: 0.5% Ropivacaine (see comment for volume) (15cc+10cc nacl pf) Blood Aspirated: No Pain Paresthesia on Injection Noted: No Resistance on Injection: Normal Image Stored and Saved: Yes Events: Uneventful and Well Tolerated
--- NOTE | 2024-07-06 16:47 | P.ANPRN ---
Procedure Note - Anesthesia - Nerve Block Performed Right iPack Single Time Out Performed: Yes (1407) Date of Procedure: 07/06/24 Procedure Start Time: 14:07 Procedure Stop Time: 14:10 Location of Patient: PreOp Indication: Acute Post-Operative Pain, Requested by Surgeon Specifically requested for management of pain by DrMarielena: Melo Campbell Sedation Type: Sedate with meaningful contact maintained Preparation: Sterile Prep Position: Supine Catheter: None Needle Types: Pajunk Needle Gauge: 21 Ultrasound used to visualize needle placement: Yes Ultrasound used to observe medication spread: Yes Injectate: 0.5% Ropivacaine (see comment for volume) (15cc+10cc nacl pf) Blood Aspirated: No Pain Paresthesia on Injection Noted: No Resistance on Injection: Normal Image Stored and Saved: Yes Events: Uneventful and Well Tolerated
[2024-07-06 17:05] LABS: Glucose,Whole Blood 206 mg/dL (70-110)
--- NOTE | 2024-07-06 17:17 | XR ---
EXAMINATION TYPE: XR knee limited RT DATE OF EXAM: 07/06/2024 5:09 PM INDICATION: Patient age:Female; 59 years old; Reason for study: Evaluation for Postop abnormality and alignment; PHH. pain COMPARISON: CT right knee 05/24/2024, bilateral knee radiographs 11/19/2017 TECHNIQUE: The Right knee(s) was examined in frontal and lateral projections. FINDINGS: Status post total knee arthroplasty changes with hardware in appropriate alignment and in tact. No evidence of fracture. Subcutaneous lucencies and lucencies within the joint consistent with surgical changes. IMPRESSION: Status post total knee arthroplasty changes with hardware intact and appropriate alignment. No fractu res identified. [facility], , 07/06/2024 5:15 PM
[2024-07-06] MEDS: DEXAMETHASONE SOD PHOSPHATE 4 MG/ML 1 ML VIAL IV ONE (18:24)
[2024-07-06] MEDS: SODIUM CHLORIDE 0.9% 1,000 ML IV SCH (18:26)
[2024-07-06 20:38] LABS: Glucose,Whole Blood 171 mg/dL (70-110)
[2024-07-06] MEDS: ASPIRIN 81 MG PO SCH (21:55)
[2024-07-06] MEDS: SENNOSIDES-DOCUSATE SODIUM 1 EACH TAB PO SCH (21:55)
[2024-07-06] MEDS: HYDROmorphone 0.5 MG/0.5 ML SYRINGE IVP PRN (23:13)
[2024-07-06] MEDS ORDERED: traMADol 50 MG TAB PO PRN (23:28)
[2024-07-07] MEDS: traMADol 50 MG TAB PO PRN (01:17)
[2024-07-07] MEDS: hydrOXYzine pamoate 25 MG CAP PO PRN (01:17)
[2024-07-07] MEDS: HYDROmorphone 1 MG/ML 1 ML SYRINGE IVP PRN (04:43)
[2024-07-07 06:17] LABS: Glucose,Whole Blood 168 mg/dL (70-110)
--- NOTE | 2024-07-07 08:14 | P.DS ---
Providers Attending physician: Melo Campbell Consults: 07/06/24 16:11 Consult Physician Routine Consulting Provider: Elle Lambert Consult Reason/Comments: post op medical management Do you want consulting provider notified?: Yes Primary care physician: [facility] Course: This is a 59-year-old patient, with past medical history of severe right knee osteoarthritis, who failed nonsurgical conservative management. On the patient presented to the [facility] pre-op department for scheduled cherelle total knee arthroplasty with Dr. Campbell. The patient tolerated the procedure well. The patient was transferred to the orthopedic floor. The patient had no acute events over night. The patient's pain has been well-controlled. Patient was examined at bedside. Patient is resting comfortably in bed. No apparent distress. They are awake, alert and able to answer questions. Inspection: The surgical wound VAC dressing is intact, there is no drainage or strikethrough. The skin surrounding the dressing is free of erythema. There is mild swelling in the operative thigh. Palpation: The operative calf is soft to compression. No calf tenderness. Neurovascular: Operative femoral nerve function is intact. The patient is able to actively plantarflex and dorsiflex their operative ankle and toes. Operative extremity sensation is intact to light touch throughout. Their operative foot appears well perfused. Start form completed and placed in the patient's chart. Patient will work with physical therapy and if passed physical therapy can discharge home with today. Plan follow up in two weeks in our office. Please see med rec for a list of accurate medications. Assessment: Postop day #1 status post right total knee arthroplasty for severe right knee osteoarthritis Right knee pain Multiple medical problems Plan - Discharge Summary Discharge Rx Participant: Yes New Discharge Prescriptions: New Ondansetron [Zofran] 4 mg PO Q6HR PRN #30 tab PRN Reason: Nausea Diclofenac Sodium [Voltaren] 75 mg PO BID #60 tab Aspirin 81 mg PO BID #60 tab Sennosides-Docusate Sodium [Senokot-S] 1 tab PO BID PRN #60 tablet PRN Reason: Constipation traMADol HCl [Ultram] 50 mg PO Q6H PRN #28 tab PRN Reason: Pain No Action Omeprazole [PriLOSEC] 40 mg PO HS metFORMIN HCL [Glucophage] 1,000 mg PO BID Levothyroxine Sodium [Synthroid] 225 mcg PO DAILY Albuterol Inhaler [Ventolin Hfa Inhaler] 1 puff INHALATION RT-TID PRN PRN Reason: Wheezing Pioglitazone [Actos] 45 mg PO HS Venlafaxine HCl [Effexor XR] 150 mg PO HS Discharge Medication List Omeprazole [PriLOSEC] 40 mg PO HS 05/29/14 [History] Levothyroxine Sodium [Synthroid] 225 mcg PO DAILY 11/01/20 [History] Pioglitazone [Actos] 45 mg PO HS 11/01/20 [History] Venlafaxine HCl [Effexor XR] 150 mg PO HS 11/01/20 [History] metFORMIN HCL [Glucophage] 1,000 mg PO BID 11/01/20 [History] Albuterol Inhaler [Ventolin Hfa Inhaler] 1 puff INHALATION RT-TID PRN 11/29/20 [History] Aspirin 81 mg PO BID #60 tab 07/07/24 [Rx] Diclofenac Sodium [Voltaren] 75 mg PO BID #60 tab 07/07/24 [Rx] Ondansetron [Zofran] 4 mg PO Q6HR PRN #30 tab 07/07/24 [Rx] Sennosides-Docusate Sodium [Senokot-S] 1 tab PO BID PRN #60 tablet 07/07/24 [Rx] traMADol HCl [Ultram] 50 mg PO Q6H PRN #28 tab 07/07/24 [Rx] Follow up Appointment(s)/Referral(s): Melo Campbell MD [Medical Doctor] - 2 Weeks Activity/Diet/Wound Care/Special Instructions: 1. Weight-bear as tolerated on your operative extremity unless instructed otherwise. Use a walker or other assistive device to ambulate. 2. Leave surgical wound VAC dressing in place. Keep charged. If becomes loose please contact the office. 3. It is okay to shower with your surgical dressing, but do not submerge in water (no hot tubs, bath's, swimming etc.) 4. Take your blood clot prevention medication as prescribed (aspirin, Eliquis, Xarelto, and Plavix are commonly prescribed medications for blood clot prevention) 5. While taking tramadol for pain take a stool softener as needed and drink lots of water. 6. Keep all follow-up appointments as scheduled. You will usually be seen in 1-2 weeks following surgery. 7. Please contact the office with any questions or concerns [phone] Discharge Disposition: HOME WITH HOME HEALTH SERVICES
[2024-07-07 09:16] LABS: Basophils # (A) 0.02 X 10*3/uL (0.00-0.10); Basophils % (A) 0.2 %; Eosinophils # (A) 0.03 X 10*3/uL (0.04-0.35); Eosinophils % (A) 0.3 %; HCT 32.6 % (37.2-46.3); HGB 9.8 g/dL (12.0-15.0); Lymphocytes # (A) 1.72 X 10*3/uL (0.90-5.00); Lymphocytes % (A) 17.4 %; MCHC 30.1 g/dL (32.0-37.0); MCV 79.9 FL (80.0-97.0); Mean Platelet Volume 10.5 FL (9.5-12.2); Monocytes # (A) 0.82 X 10*3/uL (0.20-1.00); Monocytes % (A) 8.3 %; NRBC Per 100 WBC 0 X 10*3/uL (0.00-0.01); Neutrophils # (A) 7.24 X 10*3/uL (1.80-7.70); Neutrophils % (A) 73.4 %; Platelet Count 282 X 10*3/uL (140-440); RBC 4.08 X 10*6/uL (4.10-5.20); RDW 14.7 % (11.5-14.5); WBC 9.87 X 10*3/uL (4.50-10.00)
[2024-07-07 11:42] LABS: Glucose,Whole Blood 172 mg/dL (70-110)
[2024-07-07] MEDS: TAMSULOSIN 0.4 MG CAP.ER.24H PO SCH (12:39)
[2024-07-07] MEDS ORDERED: ALBUTEROL NEBULIZED 2.5 MG/3 ML INHALATION PRN (13:02)
--- NOTE | 2024-07-07 13:02 | P.CONS ---
History of Present Illness - Reason for Consult Consult date: 07/07/24 Medical management - History of Present Illness History of present illness; patient is a 59-year-old lady with past medical history significant for hypothyroidism, diabetes mellitus, depression per the hospital for elective right total knee arthroplasty. Patient was following up outpatient with orthopedics for right knee pain. Patient had tried all conservative measures in the form of pain management, therapy, MARIBEL, but all conservative measures failed.. Patient underwent right total knee arthroplasty on 07/06. Postoperatively internal medicine team were consulted REVIEW OF SYSTEMS: CONSTITUTIONAL: No fever, no malaise, no fatigue. HEENT: No recent visual problems or hearing problems. Denied any sore throat. CARDIOVASCULAR: No chest pain, orthopnea, PND, no palpitations, no syncope. PULMONARY: No shortness of breath, no cough, no hemoptysis. GASTROINTESTINAL: No diarrhea, no nausea, no vomiting, no abdominal pain. NEUROLOGICAL: No headaches, no weakness, no numbness. HEMATOLOGICAL: Denies any bleeding or petechiae. GENITOURINARY: Denies any burning micturition, frequency, or urgency. MUSCULOSKELETAL/RHEUMATOLOGICAL: Right knee pain ENDOCRINE: Denies any polyuria or polydipsia. The rest of the 14-point review of systems is negative. PHYSICAL EXAMINATION: GENERAL: The patient is alert and oriented x3, not in any acute distress. Well developed, well nourished. HEENT: Pupils are round and equally reacting to light. EOMI. No scleral icterus. No conjunctival pallor. Normocephalic, atraumatic. No pharyngeal erythema. No thyromegaly. CARDIOVASCULAR: S1 and S2 present. No murmurs, rubs, or gallops. PULMONARY: Chest is clear to auscultation, no wheezing or crackles. ABDOMEN: Soft, nontender, nondistended, normoactive bowel sounds. No palpable organomegaly. MUSCULOSKELETAL: Right knee surgical incision seen EXTREMITIES: No cyanosis, clubbing, or pedal edema. NEUROLOGICAL: Gross neurological examination did not reveal any focal deficits. SKIN: No rashes. Assessment and plan Right knee osteoarthritis status post right total knee arthroplasty Hypothyroidism Diabetes mellitus Monitor vital signs Monitor CBC Continue pain management per orthopedics Continue DVT prophylaxis per orthopedics Aggressive bowel regimen to prevent opioid-induced constipation Resume home meds PT and OT consulted Labs and medication were reviewed.. Continue same treatment. Continue with sym ptomatic treatment. Resume home medication. Monitor labs and vitals. DVT and GI prophylaxis. Further recommendations as per clinical course of the patient Dictation was produced using BigString dictation software. please excuse any grammatical, word or spelling errors. Past Medical History Past Medical History: Asthma, Diabetes Mellitus, GERD/Reflux, Hearing Disorder / Deafness, Seizure Disorder, Sleep Apnea/CPAP/BIPAP, Thyroid Disorder Additional Past Medical History / Comment(s): DM Type II. Does not use C-PAP. pt states had seizures during childbirth x2- never had other seizures, never had to go on meds. alfreda's disease. right ear CHEESH-NA. History of Any Multi-Drug Resistant Organisms: None Reported Past Surgical History: Adenoidectomy, Hysterectomy, Tonsillectomy, Tubal Ligation Additional Past Surgical History / Comment(s): EGD, total right knee Past Anesthesia/Blood Transfusion Reactions: No Reported Reaction Additional Past Anesthesia/Blood Transfusion Reaction / Comm: Sometimes slow to awake and has hypotension. Smoking Status: Never smoker - Past Family History Mother Family Medical History: Dementia, Diabetes Mellitus, Hyperlipidemia, Hypertension Additional Family Medical History / Comment(s): parkinson's Father Family Medical History: AFIB, Diabetes Mellitus, Hypertension Medications and Allergies Home Medications Medication Instructions Recorded Confirmed Type Omeprazole [PriLOSEC] 40 mg PO HS 05/29/14 07/06/24 History Levothyroxine Sodium [Synthroid] 225 mcg PO DAILY 11/01/20 07/06/24 History Pioglitazone [Actos] 45 mg PO HS 11/01/20 07/06/24 History Venlafaxine HCl [Effexor XR] 150 mg PO HS 11/01/20 07/06/24 History metFORMIN HCL [Glucophage] 1,000 mg PO BID 11/01/20 07/06/24 History Albuterol Inhaler [Ventolin Hfa 1 puff INHALATION RT-TID PRN 11/29/20 07/06/24 History Inhaler] Aspirin 81 mg PO BID #60 tab 07/07/24 Rx Diclofenac Sodium [Voltaren] 75 mg PO BID #60 tab 07/07/24 Rx Ondansetron [Zofran] 4 mg PO Q6HR PRN #30 tab 07/07/24 Rx Sennosides-Docusate Sodium 1 tab PO BID PRN #60 tablet 07/07/24 Rx [Senokot-S] traMADol HCl [Ultram] 50 mg PO Q6H PRN #28 tab 07/07/24 Rx Allergies Allergy/AdvReac Type Severity Reaction Status Date / Time erythromycin base Allergy Rash/Hives Verified 07/06/24 13:25 influenza virus vaccine, Allergy Rash/Hives Verified 07/06/24 13:25 specific [influenza virus vacc,specific] nickel Allergy Swelling Verified 07/06/24 13:25 Penicillins Allergy Rash/Hives Verified 07/06/24 13:25 sulfamethoxazole Allergy Rash/Hives Verified 07/06/24 13:25 [From Bactrim] trimethoprim [From Bactrim] Allergy Rash/Hives Verified 07/06/24 13:25 Steroids Allergy Rash/Hives Uncoded 07/06/24 13:25 Physical Exam Vitals: Vital Signs Temp Pulse Pulse Resp BP BP Pulse Ox 07/07/24 07:09 98.4 F 90 16 121/70 97 07/07/24 00:05 98.1 F 80 17 128/68 98 07/06/24 20:28 80 103/73 97 07/06/24 20:13 80 125/77 99 07/06/24 19:58 81 130/79 97 07/06/24 19:43 83 137/78 98 07/06/24 19:28 83 116/82 92 L 07/06/24 19:26 97.8 F 80 18 147/83 93 L 07/06/24 18:28 78 138/79 99 07/06/24 18:13 78 133/83 100 07/06/24 18:07 82 18 143/83 99 07/06/24 17:26 78 16 159/84 100 07/06/24 17:13 94 20 165/85 95 07/06/24 16:58 87 20 167/83 100 07/06/24 16:43 97.3 F L 90 16 167/72 97 07/06/24 14:10 87 18 153/75 100 07/06/24 13:25 97.0 F L 89 18 180/81 98 Intake and Output 07/06/24 07/07/24 07/07/24 22:59 06:59 14:59 Intake Total 200 Output Total 200 1605 Balance 0 -1605 Intake: IV 200 Output: Urine 1125 Straight 825 Post Void Residual 480 Estimated Blood Loss 200 Other: # Voids 0 Weight 119.5 kg Results CBC & Chem 7: 07/07/24 05:01 Labs: Abnormal Lab Results - Last 24 Hours (Table) 07/06/24 07/06/24 07/06/24 Range/Units 13:40 17:04 20:36 RBC (4.10-5.20) X 10*6/uL Hgb (12.0-15.0) g/dL Hct (37.2-46.3) % MCV (80.0-97.0) FL MCH (27.0-32.0) pg MCHC (32.0-37.0) g/dL RDW (11.5-14.5) % Eosinophils # (0.04-0.35) X 10*3/uL POC Glucose (mg/dL) 114 H 206 H 171 H (70-110) mg/dL 07/07/24 07/07/24 Range/Units 05:01 06:15 RBC 4.08 L (4.10-5.20) X 10*6/uL Hgb 9.8 L (12.0-15.0) g/dL Hct 32.6 L (37.2-46.3) % MCV 79.9 L (80.0-97.0) FL MCH 24.0 L (27.0-32.0) pg MCHC 30.1 L (32.0-37.0) g/dL RDW 14.7 H (11.5-14.5) % Eosinophils # 0.03 L (0.04-0.35) X 10*3/uL POC Glucose (mg/dL) 168 H (70-110) mg/dL
[2024-07-07] MEDS: LEVOTHYROXINE 112 MCG TAB PO SCH (13:18)
[2024-07-07] MEDS: metFORMIN 500 MG TAB PO SCH (13:18)
[2024-07-07 16:43] LABS: Glucose,Whole Blood 169 mg/dL (70-110)
[2024-07-07 20:40] LABS: Glucose,Whole Blood 192 mg/dL (70-110)
[2024-07-07] MEDS: PIOGLITAZONE 45 MG TAB PO SCH (21:07)
[2024-07-07] MEDS: PANTOPRAZOLE 40 MG TABLET PO SCH (21:07)
[2024-07-07] MEDS: VENLAFAXINE HCL ER 150 MG CAP PO SCH (21:07)
[2024-07-08 06:29] LABS: Glucose,Whole Blood 161 mg/dL (70-110)
[2024-07-08] MEDS: diazePAM 5 MG TAB PO PRN ×2 (09:34→21:31)
--- NOTE | 2024-07-08 09:38 | P.PN ---
Subjective Progress Note Date: 07/08/24 No acute events overnight. Patient is doing well this morning. They have walked to the bathroom with a walker and assistance. They deny chest pain or shortness of breath. Patient has had urinary retention and a Wood catheter was placed. Patient states they do not want to take [place] because it makes him nauseous so they are taking tramadol and as expected is having increased amount of right knee pain after the block wore off. Objective - Vital Signs Vital signs: Vital Signs Temp 98.1 F 07/08/24 07:56 Pulse 99 07/08/24 07:56 Resp 20 07/08/24 07:56 BP 162/93 07/08/24 07:56 Pulse Ox 97 07/08/24 07:56 FiO2 Intake & Output 07/07/24 07/08/24 07/08/24 18:59 06:59 18:59 Intake Total 1650 Output Total 975 2150 Balance -975 -500 Intake: Oral 1650 Output: Urine 975 2150 Straight 700 Other: Voiding Method Toilet Indwelling Catheter - Exam Patient was examined at bedside. Patient is resting comfortably in a chair with feet elevated. No apparent distress. They are awake, alert and able to answer questions. Inspection: The surgical wound VAC dressing is intact, there is no drainage or strikethrough. The skin surrounding the dressing is free of erythema. There is mild swelling in the operative thigh. Palpation: The operative calf is soft to compression. No calf tenderness. Neurovascular: Operative femoral nerve function is intact. The patient is able to actively plantarflex and dorsiflex their operative ankle and toes. Operative extremity sensation is intact to light touch throughout. Their operative foot appears well perfused, palpable dorsalis pedis pulse, and capillary refill under 2 seconds. - Labs CBC & Chem 7: 07/07/24 05:01 Labs: Abnormal Lab Results - Last 24 Hours (Table) 07/07/24 07/07/24 07/07/24 Range/Units 11:41 16:41 20:39 POC Glucose (mg/dL) 172 H 169 H 192 H (70-110) mg/dL 07/08/24 Range/Units 06:28 POC Glucose (mg/dL) 161 H (70-110) mg/dL Assessment and Plan Assessment: Postop day #2 status post right Junior total knee arthroplasty for severe right knee osteoarthritis Right knee pain Urinary retention Diabetes mellitus Multiple medical problems Plan: Weight-bear as tolerated on the operative extremity. Use a walker to ambulate. Leave surgical wound VAC dressing in place. Physical therapy for gait training and mobilization. We appreciate internal medicine for perioperative medical management. Disposition: Patient is having urinary retention and acute postsurgical pain. Plan to keep at least until tomorrow.
[2024-07-08 11:32] LABS: Glucose,Whole Blood 189 mg/dL (70-110)
--- NOTE | 2024-07-08 13:38 | P.PN ---
Subjective Progress Note Date: 07/08/24 patient is a 59-year-old lady with past medical history significant for hypothyroidism, diabetes mellitus, depression per the hospital for elective right total knee arthroplasty. Patient was following up outpatient with orthopedics for right knee pain. Patient had tried all conservative measures in the form of pain management, therapy, MARIBEL, but all conservative measures failed.. Patient underwent right total knee arthroplasty on 07/06. Postoperatively internal medicine team were consulted 07/08. Patient seen and examined. States right knee pain is improved. Vital signs stable REVIEW OF SYSTEMS: CONSTITUTIONAL: No fever, no malaise,. CARDIOVASCULAR: No chest pain, no palpitations, no syncope. PULMONARY: No shortness of breath, no cough, GASTROINTESTINAL: No diarrhea, no nausea, no vomiting, no abdominal pain. NEUROLOGICAL: No headaches, no weakness, PHYSICAL EXAMINATION: GENERAL: The patient is alert and oriented x3, not in any acute distress. Well developed, well nourished. HEENT: Pupils are round and equally reacting to light. EOMI. No scleral icterus. No conjunctival pallor. Normocephalic, atraumatic. No pharyngeal erythema. No thyromegaly. CARDIOVASCULAR: S1 and S2 present. No murmurs, rubs, or gallops. PULMONARY: Chest is clear to auscultation, no wheezing or crackles. ABDOMEN: Soft, nontender, nondistended, normoactive bowel sounds. No palpable organomegaly. MUSCULOSKELETAL: Right knee surgical incision seen EXTREMITIES: No cyanosis, clubbing, or pedal edema. NEUROLOGICAL: Gross neurological examination did not reveal any focal deficits. SKIN: No rashes. Assessment and plan Right knee osteoarthritis status post right total knee arthroplasty Hypothyroidism Diabetes mellitus Monitor vital signs Monitor CBC Continue pain management per orthopedics Continue DVT prophylaxis per orthopedics Aggressive bowel regimen to prevent opioid-induced constipation PT and OT following Labs and medication were reviewed.. Continue same treatment. Continue with symptomatic treatment. Resume home medication. Monitor labs and vitals. DVT and GI prophylaxis. Further recommendations as per clinical course of the patient Dictation was produced using [employer] dictation software. please excuse any grammatical, word or spelling errors. Objective - Vital Signs Vital signs: Vital Signs Temp 98.1 F 07/08/24 07:56 Pulse 99 07/08/24 07:56 Resp 20 07/08/24 07:56 BP 162/93 07/08/24 07:56 Pulse Ox 97 07/08/24 07:56 FiO2 Intake & Output 07/07/24 07/08/24 07/08/24 18:59 06:59 18:59 Intake Total 1650 Output Total 975 2150 Balance -975 -500 Intake: Oral 1650 Output: Urine 975 2150 Straight 700 Other: Voiding Method Toilet Indwelling Catheter - Labs CBC & Chem 7: 07/07/24 05:01 Labs: Abnormal Lab Results - Last 24 Hours (Table) 07/07/24 07/07/24 07/08/24 Range/Units 16:41 20:39 06:28 POC Glucose (mg/dL) 169 H 192 H 161 H (70-110) mg/dL 07/08/24 Range/Units 11:30 POC Glucose (mg/dL) 189 H (70-110) mg/dL
[2024-07-08 16:46] LABS: Glucose,Whole Blood 186 mg/dL (70-110)
[2024-07-08 20:55] LABS: Glucose,Whole Blood 204 mg/dL (70-110)
[2024-07-09 06:19] LABS: Glucose,Whole Blood 173 mg/dL (70-110)
[2024-07-09 08:09] VITALS: BP 127/77; PULSE 107; RESP 18; TEMP 98
--- NOTE | 2024-07-09 08:39 | P.DS ---
Providers Date of admission: 07/06/24 12:58 Attending physician: Melo Campbell Consults: 07/06/24 16:11 Consult Physician Routine Consulting Provider: Elle Lambert Consult Reason/Comments: post op medical management Do you want consulting provider notified?: Yes Primary care physician: Adiel Collis P. [facility] Course: The patient is a very pleasant 59-year-old female who was admitted under my care this past Thursday. She underwent an uncomplicated total knee replacement. Following surgery she was transferred to the orthopedic floor. She received 2 doses of postoperative antibiotics. She worked with physical therapy. Due to intolerance to strong oral pain medications due to nausea she was only able to take Ultram and had some pain postoperatively. She also had urinary retention. She was seen this morning and was doing much better. Her pain was in control. Her exam was benign. She was cleared for discharge home. Assessment: Postop day #1 status post right total knee arthroplasty for severe right knee osteoarthritis Right knee pain Multiple medical problems Patient Condition at Discharge: Good Plan - Discharge Summary Discharge Rx Participant: Yes New Discharge Prescriptions: New Ondansetron [Zofran] 4 mg PO Q6HR PRN #30 tab PRN Reason: Nausea Diclofenac Sodium [Voltaren] 75 mg PO BID #60 tab Aspirin 81 mg PO BID #60 tab Sennosides-Docusate Sodium [Senokot-S] 1 tab PO BID PRN #60 tablet PRN Reason: Constipation traMADol HCl [Ultram] 50 mg PO Q6H PRN #28 tab PRN Reason: Pain Continue Omeprazole [PriLOSEC] 40 mg PO HS metFORMIN HCL [Glucophage] 1,000 mg PO BID Levothyroxine Sodium [Synthroid] 225 mcg PO DAILY Albuterol Inhaler [Ventolin Hfa Inhaler] 1 puff INHALATION RT-TID PRN PRN Reason: Wheezing Pioglitazone [Actos] 45 mg PO HS Venlafaxine HCl [Effexor XR] 150 mg PO HS Discharge Medication List Omeprazole [PriLOSEC] 40 mg PO HS 05/29/14 [History] Levothyroxine Sodium [Synthroid] 225 mcg PO DAILY 11/01/20 [History] Pioglitazone [Actos] 45 mg PO HS 11/01/20 [History] Venlafaxine HCl [Effexor XR] 150 mg PO HS 11/01/20 [History] metFORMIN HCL [Glucophage] 1,000 mg PO BID 11/01/20 [History] Albuterol Inhaler [Ventolin Hfa Inhaler] 1 puff INHALATION RT-TID PRN 11/29/20 [History] Aspirin 81 mg PO BID #60 tab 07/07/24 [Rx] Diclofenac Sodium [Voltaren] 75 mg PO BID #60 tab 07/07/24 [Rx] Ondansetron [Zofran] 4 mg PO Q6HR PRN #30 tab 07/07/24 [Rx] Sennosides-Docusate Sodium [Senokot-S] 1 tab PO BID PRN #60 tablet 07/07/24 [Rx] traMADol HCl [Ultram] 50 mg PO Q6H PRN #28 tab 07/07/24 [Rx] Follow up Appointment(s)/Referral(s): [facility] [NON-STAFF] - 1 Week Adiel Lopez DO [Primary Care Provider] - 07/13/24 11:20 am (With Sheila) [facility] [NON-STAFF] - 1-2 Days ([facility] will call you to schedule your in home physical therapy. ) Melo Campbell MD [Medical Doctor] - 07/18/24 1:10 pm (With Justo Graves) Activity/Diet/Wound Care/Special Instructions: 1. Weight-bear as tolerated on your operative extremity unless instructed otherwise. Use a walker or other assistive device to ambulate. 2. Leave surgical wound VAC dressing in place. Keep charged. If becomes loose please contact the office. 3. It is okay to shower with your surgical dressing, but do not submerge in water (no hot tubs, bath's, swimming etc.) 4. Take your blood clot prevention medication as prescribed (aspirin, Eliquis, Xarelto, and Plavix are commonly prescribed medications for blood clot prevention) 5. While taking tramadol for pain take a stool softener as needed and drink lots of water. 6. Keep all follow-up appointments as scheduled. You will usually be seen in 1-2 weeks following surgery. 7. Please contact the office with any questions or concerns [phone] Discharge Disposition: HOME WITH HOME HEALTH SERVICES
[2024-07-09 09:25] LABS: Basophils # (A) 0.02 X 10*3/uL (0.00-0.10); Basophils % (A) 0.2 %; Eosinophils # (A) 0.08 X 10*3/uL (0.04-0.35); HCT 30.2 % (37.2-46.3); HGB 9.5 g/dL (12.0-15.0); Lymphocytes # (A) 1.39 X 10*3/uL (0.90-5.00); Lymphocytes % (A) 16.8 %; MCH 24.6 pg (27.0-32.0); MCHC 31.5 g/dL (32.0-37.0); MCV 78.2 FL (80.0-97.0); Mean Platelet Volume 10.4 FL (9.5-12.2); Monocytes # (A) 1.08 X 10*3/uL (0.20-1.00); NRBC Per 100 WBC 0 X 10*3/uL (0.00-0.01); Neutrophils # (A) 5.67 X 10*3/uL (1.80-7.70); Neutrophils % (A) 68.5 %; Platelet Count 258 X 10*3/uL (140-440); RBC 3.86 X 10*6/uL (4.10-5.20); RDW 14.7 % (11.5-14.5); WBC 8.28 X 10*3/uL (4.50-10.00)
[2024-07-09 11:04] LABS: Glucose,Whole Blood 166 mg/dL (70-110)
--- NOTE | 2024-07-12 09:12 | P.PN ---
Subjective Progress Note Date: 07/09/24 patient is a 59-year-old lady with past medical history significant for hypothyroidism, diabetes mellitus, depression per the hospital for elective right total knee arthroplasty. Patient was following up outpatient with orthopedics for right knee pain. Patient had tried all conservative measures in the form of pain management, therapy, MARIBEL, but all conservative measures failed.. Patient underwent right total knee arthroplasty on 07/06. Postoperatively internal medicine team were consulted 07/08. Patient seen and examined. States right knee pain is improved. Vital signs stable 07/09/2024 Patient is eval today in follow-up of medical floor. She is postoperative right knee total arthroplasty. She states that her pain is controlled with oral pain regimen. She is passing gas but no bowel movement yet she has been peeing without difficulty and tolerating diet. She will be discharged home and will be discharged on VTE prophylaxis with aspirin 80 mg twice daily for the next 3 days. Patient to continue all her same home medications. REVIEW OF SYSTEMS: CONSTITUTIONAL: No fever, no malaise,. CARDIOVASCULAR: No chest pain, no palpitations, no syncope. PULMONARY: No shortness of breath, no cough, GASTROINTESTINAL: No diarrhea, no nausea, no vomiting, no abdominal pain. NEUROLOGICAL: No headaches, no weakness, PHYSICAL EXAMINATION: GENERAL: The patient is alert and oriented x3, not in any acute distress. Well developed, well nourished. HEENT: Pupils are round and equally reacting to light. EOMI. No scleral icterus. No conjunctival pallor. Normocephalic, atraumatic. No pharyngeal erythema. No thyromegaly. CARDIOVASCULAR: S1 and S2 present. No murmurs, rubs, or gallops. PULMONARY: Chest is clear to auscultation, no wheezing or crackles. ABDOMEN: Soft, nontender, nondistended, normoactive bowel sounds. No palpable organomegaly. MUSCULOSKELETAL: Right knee surgical incision seen EXTREMITIES: No cyanosis, clubbing, or pedal edema. NEUROLOGICAL: Gross neurological examination did not reveal any focal deficits. SKIN: No rashes. Assessment and plan Right knee osteoarthritis status post right total knee arthroplasty Hypothyroidism Diabetes mellitus Monitor vital signs Monitor CBC Continue pain management per orthopedics Continue DVT prophylaxis per orthopedics Aggressive bowel regimen to prevent opioid-induced constipation PT and OT following Labs and medication were reviewed.. Continue same treatment. Continue with symptomatic treatment. Resume home medication. Monitor labs and vitals. DVT and GI prophylaxis. Further recommendations as per clinical course of the patient The impression and plan of care has been dictated by Audrey Gordon Nurse Practitioner as directed. Dr. Hans MD I have performed a history and physical examination and medical decision making of this patient, discussed the same with the dictator, and agree with the dictators assessment and plan as written, documented as a scribe. Based on total visit time, I have performed more than 50% of this visit. Dictation was produced using [employer] dictation software. please excuse any grammatical, word or spelling errors. Objective - Vital Signs Vital signs: Vital Signs Temp 98.0 F 07/09/24 07:26 Pulse 107 H 07/09/24 07:26 Resp 18 07/09/24 07:26 BP 127/77 07/09/24 07:26 Pulse Ox 97 07/09/24 07:26 FiO2 Intake & Output 07/08/24 07/09/24 07/09/24 18:59 06:59 18:59 Output Total 1900 200 400 Balance -1900 -200 -400 Output: Urine 1900 100 400 Straight 950 Post Void Residual 100 Other: Voiding Method Indwelling Catheter Toilet - Labs CBC & Chem 7: 07/09/24 04:52 Labs: Abnormal Lab Results - Last 24 Hours (Table) 07/08/24 07/08/24 07/08/24 Range/Units 11:30 16:45 20:53 POC Glucose (mg/dL) 189 H 186 H 204 H (70-110) mg/dL 07/09/24 Range/Units 06:14 POC Glucose (mg/dL) 173 H (70-110) mg/dL Assessment and Plan Time with Patient: Less than 30
== END 2024-07-09 13:16 | disposition home health service (06) ==
LOC: OR 12:57 → 4SSUR 12:58
PROVIDERS: ADMIT Orthopaedic Surgery; ATTEND Orthopaedic Surgery
DX: M17.11 Unilateral primary osteoarthritis, right knee (principal); G89.18 Other acute postprocedural pain; N99.89 Other postprocedural complications and disorders of genitourinary system; R33.8 Other retention of urine; R11.0 Nausea; T40.2X5A Adverse effect of other opioids, initial encounter; E11.9 Type 2 diabetes mellitus without complications; J45.909 Unspecified asthma, uncomplicated; G47.33 Obstructive sleep apnea (adult) (pediatric); K21.9 Gastro-esophageal reflux disease without esophagitis; E06.3 Autoimmune thyroiditis; F32.A Depression, unspecified; Z79.890 Hormone replacement therapy; Z79.84 Long term (current) use of oral hypoglycemic drugs; Z79.899 Other long term (current) drug therapy; Z88.0 Allergy status to penicillin; Z88.1 Allergy status to other antibiotic agents; Z88.7 Allergy status to serum and vaccine; Z88.2 Allergy status to sulfonamides; Z88.8 Allergy status to other drugs, medicaments and biological substances; Z91.048 Other nonmedicinal substance allergy status; Z86.69 Personal history of other diseases of the nervous system and sense organs
CPT/HCPCS: 0055T; 27447; 64447; 64999; 85025

== ENCOUNTER → 2024-10-12 | Outpatient (CLI) | payer MEDICARE ==
--- NOTE | 2024-10-12 15:41 | US ---
EXAMINATION TYPE: US thyroid st tissue head/neck DATE OF EXAM: 10/12/2024 COMPARISON: NONE CLINICAL INDICATION: Female, 59 years old with history of E03.9 HYPOTHYROIDISM; family history of thy roid cancer, sisters, aunt and cousins, has been on meds for years TECHNIQUE: Grayscale and color Doppler imaging of the thyroid gland. FINDINGS: GLAND SIZE: Right Lobe: 2.1 x 0.8 x 0.8cm Overall Parenchyma: heterogeneous Left Lobe: 2.8 x 0.7 x 0.8cm Overall Parenchyma: heterogeneous Isthmus Thickness: 0.2 cm NODULES RIGHT: # of nodules measured on right: 0 LEFT: # of nodules measured on left: 0 ISTHMUS: # of nodules measured in the isthmus: 0 Bilateral neck scanned, no evidence of lymphadenopathy. IMPRESSION: 1. No suspicious thyroid nodules. Highest TI-RADS level nodule reported: 2017 ACR TI-RADS LEVEL: TI-RADS 1 - BENIGN: No FNA TI-RADS assessment score and recommendation for follow-up based on appropriate scoring and treatment protocols. TR1 Benign No FNA TR2 Not suspicious No FNA TR3: If nodule size is ? 2.5 cm, FNA is recommended. If nodule size is ? 1.5 cm, follow-up imaging at 1, 3, and 5 years is recommended. TR4: If nodule size is ? 1.5 cm, FNA is recommended. If nodule size is ? 1.0 cm, follow-up imaging at 1, 2, 3, and 5 years is recommended. TR5: If nodule size is ? 1.0 cm, FNA is recommended. If nodule size is ? 0.5 cm, annual follow-up for up to 5 years is recommended. TR 1 thyroid nodules have a 0.3 % risk of malignancy. TR 2 thyroid nodules have a 1.5 % risk of malignancy. TR 3 thyroid nodules have a 4.8 % risk of malignancy. TR 4 thyroid nodules have a 9.1 % risk of malignancy. TR 5 thyroid nodules have a 35 % risk of malignancy. [email or web address] [facility], , 10/12/2024 3:39 PM
== END | disposition home or self-care (01) ==
LOC: RADUSWWP 14:01
PROVIDERS: ATTEND Internal Medicine Geriatric Medicine
DX: E03.9 Hypothyroidism, unspecified (principal); Z80.8 Family history of malignant neoplasm of other organs or systems
CPT/HCPCS: 76536